=== PATIENT | female | born 1960 | race African-American/Black ===

== ENCOUNTER → 2017-06-06 | Outpatient (CLI) | payer BC ==
[~2017-06-06] MED LIST: ACETAMINOPHEN PO; AVELOX400 MG PO; HYDROCODONE/HO240 ML PO; PHENERGAN W/CO120 ML PO; PLAQUENIL200 MG PO; PREDNISONE PO; PRILOSEC PO
--- NOTE | ~2017-06-06 | MY29 ---
[facility] A Service of [facility] RADIOLOGY TEXT RESULTS PATIENT: AYE WILSON LOCATION: [facility] : 62 UNIT #: [id number] AGE: [address]: MARLA LEAVITT MD SEX: F ORDER DR: [id number] [facility] [address] [place], [place] [address] [id number] O MR#: [id number] Acc #: [id number] NAME: AYE WILSON : 1960 SEX: F STUDY DATE/TIME: 06/06/2017 13:09 UNIT: [facility] ROOM: STUDY DESCRIPTION: MY LORIE SCREENING W/ CAD BILAT Attending Physician: Marla Leavitt M.D. Referring Physician: Marla Leavitt M.D. Ordering Physician: Marla Leavitt M.D. Primary Care Physician: Marla Leavitt M.D. MEDICAL IMAGING REPORT This report is preliminary unless electronic signature is present EXAM Digital screening mammogram 06/06/2017, [facility] HISTORY 56-year-old woman strong family history, mother and grandmother premenopausal. Annual screen. COMPARISON Mammograms 08/08/2011, 05/21/2013, 03/15/2015 FINDINGS Digital imaging of each breast was completed utilizing a two-view examination of each breast in craniocaudal and mediolateral-oblique projections. Review and interpretation of digital mammograms include a second review in conjunction with FDA-approved CAD device. There is a normal parenchymal presentation bilaterally consistent with the patient's age. There are no breast masses imaged and no parenchymal asymmetry is visualized. There are no suspicious microcalcifications and I see no focal architectural disturbance. IMPRESSION Negative screening digital mammogram. One-year followup recommended. Patients over the age of 40 are entered into a reminder system with target due date for the next mammogram. A result letter will also be sent to the patient. BIRADS: 1 Negative ADDENDUM Prominent right axillary lymph nodes partially imaged. Nonspecific finding. Correlate clinically. [facility] A Service [facility] RADIOLOGY TEXT RESULTS PATIENT: AYE WILSON LOCATION: [facility] : 62 UNIT #: [id number] AGE: [address]: MARLA LEAVITT MD SEX: F ORDER DR: Dictated by... Siva Lindsay M.D. THIS IS AN ELECTRONICALLY VERIFIED REPORT Siva Lindsay M.D. at 06/08/2017 12:02 PM MELISSA/kiran TD: 06/06/2017 16:13 JOB #: [id number] MEDICAL IMAGING REPORT Page 1 of 1 COPY
== END | disposition home or self-care (01) ==
LOC: CWCC 12:45
DX: Z12.31 Encounter for screening mammogram for malignant neoplasm of breast (principal); Z80.3 Family history of malignant neoplasm of breast; R59.9 Enlarged lymph nodes, unspecified
CPT/HCPCS: G0202